=== PATIENT | male | born 1970 | race African-American/Black ===

== ENCOUNTER 2017-01-17 10:26 | Day surgery (SDC) | payer OTHER ==
[2017-01-16 16:58] VITALS: BMI 22.5
[~2017-01-17] VITALS: Ht 172.7 cm; Wt 64.9 kg
[2017-01-17] VITALS (8 sets, daily range): BP systolic 110–151; BP diastolic 71–86; PULSE 62–86; RESP 12–18; Ht 172.7 cm; Wt 64.9 kg
[~2017-01-17 10:26] MED LIST: ASPI-535; CEFAZOLIN 1 GM INJ ONE
[2017-01-17] MEDS ORDERED: CEFAZOLIN 2 GM/50 ML (PMX) 50 ML IVPB ONE (10:30)
[2017-01-17] MEDS ORDERED: MIRT15TA5 PO (11:35)
[2017-01-17] MEDS ORDERED: GLYCOPYRROLATE 0.4 MG INJ ONE (12:13)
[2017-01-17] MEDS ORDERED: PROPOFOL 20 ML ONE (12:13)
[2017-01-17] MEDS ORDERED: MIDAZOLAM 1 MG/ML 2 ML INJ ONE (12:13)
[2017-01-17] MEDS ORDERED: LIDOCAINE 2% (SDV) 5 ML INJ ONE (12:13)
[2017-01-17] MEDS ORDERED: ROCURONIUM 50 MG INJ ONE (12:13)
[2017-01-17] MEDS ORDERED: NEOSTIGMINE 3 MG/3 ML SYRINGE ONE (12:13)
[2017-01-17] MEDS ORDERED: ONDANSETRON 4 MG INJ ONE (12:14)
[2017-01-17] MEDS ORDERED: DEXAMETHASONE 4 MG/ML 1 ML INJ ONE (12:14)
[2017-01-17] MEDS ORDERED: FENTAnyl 50 MCG/ML VIAL ONE (12:14)
--- NOTE | 2017-01-17 12:26 | HPN ---
Date/Time of Note Date/Time of Note DATE: 01/17/17 TIME: 12:26 Interval H&P Admission Note Pt. seen H&P reviewed: No system changes BETZAIDA BERRY MD Jan 17, 2017 12:26
[2017-01-17] MEDS ORDERED: BUPIVACAINE 0.5% (SDV) 30 ML INJ ONE (12:59)
[2017-01-17] MEDS ORDERED: SUCCINYLCHOLINE CHLORIDE 100 MG/5 ML SYG IV ONE (13:12)
[2017-01-17] MEDS ORDERED: NEOMYC/POLYMYX/BACIT 30 GM OINT ONE (13:21)
--- NOTE | 2017-01-17 13:48 | OPR ---
Date/Time of Note Date/Time of Note DATE: 01/17/17 TIME: 13:40 Operative Report Procedure Date: Jan 17, 2017 Preoperative Diagnosis Right hydrocele Postoperative Diagnosis Right hydrocele Operation Performed Right hydrocelectomy Surgeon: BETZAIDA BERRY MD Anesthesia: general Anesthesiologist: RODNEY ALEGRE MD Estimated Blood Loss: minimal Specimens Hydrocele sac Complications: None Pt Condition Post Procedure: stable Indications Right hydrocele Operative\Procedure Findings Right hydrocele Procedure Description Patient was brought to the operating room. General anesthesia was induced. Time out was done, the patient was identified by his name date , the procedure and the side of the procedure. The genital area was prepped and draped in the usual sterile manner. A vertical incision was made over the right scrotal wall. Incision was deepened through the different layers of the scrotum then the tunica vaginalis was opened and yellowish hydrocele fluid was suctioned. The testicle was delivered out of the sac then the sac was excised on both sides. All the bleeders were electrocoagulated, good hemostasis was obtained, then the edges of the hydrocele were sutured with 3-0 Vicryl running interlocked sutures. The subcutaneous tissue was then approximated with 3-0 Vicryl running interlocked sutures and the skin was closed with 3-0 Vicryl running mattress sutures. Patient was given half percent Marcaine injection over the incision for local anesthesia. The incision was covered was triple antibiotic ointment and piece of Telfa and a fluff dressing and that was held in place was a suspensory scrotal support and the patient was transferred to recovery room in stable and satisfactory condition BETZAIDA BERRY MD Jan 17, 2017 13:48
[2017-01-17] MEDS ORDERED: HYDROmorphONE (0.2 MG/ML) 10ML SYG IV PRN ×3 (14:00)
[2017-01-17] MEDS ORDERED: LABETALOL HCL 20MG INJ IV PRN (14:00)
[2017-01-17] MEDS ORDERED: ONDANSETRON 4 MG INJ IV PRN (14:00)
[2017-01-17] MEDS ORDERED: DIPHENHYDRAMINE 50 MG INJ IV PRN (14:00)
[2017-01-17] MEDS ORDERED: hydrALAzine 20 MG INJ IV PRN (14:00)
[2017-01-17] MEDS ORDERED: ATROPINE 1 MG/10 ML SYRINGE IV PRN (14:00)
[2017-01-17] MEDS ORDERED: FENTAnyl 50 MCG/ML VIAL IV PRN ×2 (14:00)
[2017-01-17] MEDS ORDERED: MEPERIDINE 25 MG INJ IV PRN (14:00)
[2017-01-17] MEDS ORDERED: MIDAZOLAM 1 MG/ML 2 ML INJ IV PRN (14:00)
[2017-01-17] MEDS ORDERED: morphine (1 MG/ML) 10ML SYRINGE IV PRN ×3 (14:00)
[2017-01-17] MEDS ORDERED: HYDROCODONE/APAP (5/325) TAB PO PRN (14:00)
[2017-01-17] MEDS ORDERED: OXYCODONE/ACETAMINOPHEN (5/325) TAB PO PRN ×2 (14:00)
[2017-01-17] MEDS ORDERED: EPHEDrine SULFATE 50 MG/5 ML SYG IV PRN (14:00)
== END 2017-01-17 15:00 | disposition home or self-care (01) ==
LOC: SDS 10:26
PROVIDERS: ATTEND Urology
DX: N43.3 Hydrocele, unspecified (principal)
CPT/HCPCS: 55500; 88302; J0690; J1100; J2250; J2405; J2710; J3010; J7999; Z7512; Z7610

== ENCOUNTER 2017-02-17 11:22 | Emergency (ER) | payer OTHER ==
[~2017-02-17] VITALS: Ht 172.7 cm; Wt 65.0 kg
[~2017-02-17 11:22] MED LIST changes: -ASPI-535; -CEFAZOLIN 1 GM INJ ONE; +MIRT15TA5 PO
[2017-02-17 11:24] VITALS: Ht 172.7 cm; Wt 65.0 kg
[2017-02-17] MEDS ORDERED: ZOLP5TAB PO (11:57)
[2017-02-17 12:10] VITALS: BP 152/85; PULSE 76
--- NOTE | 2017-02-17 12:28 | ERD ---
ER Documentation Chief Complaint Date/Time DATE: 02/17/17 TIME: 12:26 Chief Complaint Pt having trouble sleeping X 1.5 weeks, taking benadryl with no improvement HPI 46-year-old male history of bipolar disorder presents emergency department with insomnia for the past 1-1/2 weeks. He states that he was seen at an outside facility for this and was prescribed Benadryl 50 mg which she has been taking but without any improvement. He is supposed to see a sleep specialist on the which is 2 days from now. He denies suicidal ideations. ROS All systems reviewed and are negative except as per history of present illness. Medications Home Meds Active Scripts Zolpidem Tartrate* (Ambien*) 5 Mg Tablet, 5 MG PO HS Y for INSOMNIA, #3 TAB Prov:ANGIE DENNISON PA-C 02/17/17 Reported Medications Mirtazapine* (Mirtazapine*) 15 Mg Tablet, 15 MG PO HS, TAB 01/17/17 Allergies Allergies: Coded Allergies: No Known Allergies (Verified Allergy, Mild, 02/17/17) PMhx/Soc Medical and Surgical Hx: pt denies Medical Hx, pt denies Surgical Hx History of Surgery: No Anesthesia Reaction: No Hx Neurological Disorder: Yes (DEPRESSION, INSOMNIA) Hx Respiratory Disorders: No Hx Cardiac Disorders: No Hx Psychiatric Problems: No Hx Miscellaneous Medical Probl: No Hx Alcohol Use: No Hx Substance Use: No Hx Tobacco Use: Yes Smoking Status: Current every day smoker Physical Exam Vitals Vital Signs Date Time Temp Pulse Resp B/P Pulse Ox O2 Delivery O2 Flow Rate FiO2 02/17/17 12:10 76 152/85 02/17/17 11:24 97.9 68 18 173/83 100 Physical Exam General: Well-developed, well-nourished. The patient appears in no acute distress. HEENT: Head is normocephalic, atraumatic. No scleral icterus. Neck: Supple. Nontender. Lungs: Clear to auscultation. Normal air movement. Heart: Regular rate and rhythm. S1 and S2 are normal. No murmurs, gallops, or rubs. Abdomen: Nondistended. Extremities: No clubbing or cyanosis. Moving extremities x 4. No weakness. Neurologic: Alert and oriented 3. No focal deficits. Normal speech and gait. Skin: Normal turgor. No rash or lesions. Procedures/MDM 46-year-old male presents with symptoms of insomnia for the past week and a half , he will be given a short course of Ambien until he sees his sleep specialist. He does have a history of bipolar disorder and he is taking Abilify regularly. He does not present with any signs or symptoms of acute psychosis, or suicidal ideations or danger to others, he does not warrant any emergent psychiatric evaluation is stable for outpatient management. The case was reviewed and discussed with Dr. Salazar who agrees with the plan of care including labs, treatment, and advanced imaging as appropriate. Patient's blood pressure was elevated (>120/80) but appears stable without evidence of hypertension emergency or urgency. The patient was counseled about the risks of hypertension and urged to pursue outpatient monitoring and therapy within a week with their primary care physician. Departure Diagnosis: Primary Impression: Insomnia Additional Impression: Bipolar disorder Condition: Good Patient Instructions: Insomnia ANGIE DENNISON PA-C Feb 17, 2017 12:28
== END 2017-02-17 12:09 | disposition home or self-care (01) ==
LOC: FTE 11:22
DX: G47.00 Insomnia, unspecified (principal); F31.9 Bipolar disorder, unspecified; F17.210 Nicotine dependence, cigarettes, uncomplicated
CPT/HCPCS: 99284

== ENCOUNTER 2018-08-27 08:38 | Emergency (ER) | payer OTHER ==
[~2018-08-27] VITALS: Ht 172.7 cm; Wt 65.3 kg
[~2018-08-27 08:38] MED LIST changes: +ZOLP5TAB PO
[2018-08-27 08:55] VITALS: BP 145/80; PULSE 84; RESP 18; Ht 172.7 cm; Wt 65.3 kg
[2018-08-27] MEDS ORDERED: HC30CR25 TOP (09:49)
--- NOTE | 2018-08-27 13:17 | ERD ---
ER Documentation Chief Complaint Chief Complaint SKIN RASH BEHIND EARS, NEED MEDICATION. HPI 48-year-old male presents to the ED complaining of itchiness and dryness behind his ears and scalp for the past week. Patient states that he is tried benzyl peroxide without any relief. He denies shortness of breath, nausea vomiting ROS All systems reviewed and are negative except as per history of present illness. Medications Home Meds Active Scripts Hydrocortisone* Topical (Hydrocortisone* Topical) 2.5%-28.3 Gm Cream..g., 1 APPLIC TOP BID for 7 Days, #1 TUB Prov:SHILPI CARVALHO PA-C 08/27/18 Zolpidem Tartrate* (Ambien*) 5 Mg Tablet, 5 MG PO HS PRN for INSOMNIA, #3 TAB Prov:ANGIE DENNISON PA-C 02/17/17 Reported Medications Mirtazapine* (Mirtazapine*) 15 Mg Tablet, 15 MG PO HS, TAB 01/17/17 Allergies Allergies: Coded Allergies: No Known Allergies (Verified Allergy, Mild, 08/27/18) PMhx/Soc History of Surgery: No Anesthesia Reaction: No Hx Neurological Disorder: Yes (DEPRESSION, INSOMNIA) Hx Respiratory Disorders: No Hx Cardiac Disorders: No Hx Psychiatric Problems: No Hx Miscellaneous Medical Probl: No Hx Alcohol Use: No Hx Substance Use: No Hx Tobacco Use: Yes Smoking Status: Current every day smoker Physical Exam Vitals Vital Signs Date Temp Pulse Resp B/P (MAP) Pulse Ox O2 O2 Flow FiO2 Time Delivery Rate 08/27/18 98.7 84 18 145/80 100 08:55 (101) Physical Exam Const: No acute distress Head: Atraumatic Eyes: Normal Conjunctiva ENT: Normal External Ears, Nose and Mouth. Neck: Full range of motion. No meningismus. Resp: Clear to auscultation bilaterally Cardio: Regular rate and rhythm, no murmurs Abd: Soft, non tender, non distended. Normal bowel sounds Skin: Mild erythematous and flakiness behind the ears Back: No midline or flank tenderness Ext: No cyanosis, or edema Neur: Awake and alert Psych: Normal Mood and Affect Procedures/MDM Is a 48-year-old male presents to the ED with a pruritic rash behind the ears. No evidence of anaphylaxis. Patient stable to be discharged home with prescription for hydrocortisone. I have discussed the adverse effects. Patient is well aware, and he instructed him to follow-up with his primary he understands agrees this plan Departure Diagnosis: Primary Impression: Rash Condition: Stable Patient Instructions: What Is Atopic Dermatitis?, Self-Care for Skin Rashes, Contact Dermatitis Referrals: NO PRIMARY,CARE PHYSICIAN (PCP) Additional Instructions: FOLLOW UP WITH YOUR PRIMARY CARE PHYSICIAN TOMORROW.Return to this facility if you are not improving as expected. Take all medicines as directed. Return to this facility if you are not improving as expected. SHILPI CARVALHO PA-C Aug 27, 2018 13:17
== END 2018-08-27 10:37 | disposition home or self-care (01) ==
LOC: FTE 08:38
DX: L29.9 Pruritus, unspecified (principal); F17.210 Nicotine dependence, cigarettes, uncomplicated
CPT/HCPCS: 99282

== ENCOUNTER → 2019-02-13 | Emergency (ER) | payer MEDICARE, OTHER ==
[~2019-02-13] VITALS: Wt 76.0 kg
[~2019-02-13] MED LIST changes: +HC30CR25 TOP
[2019-02-13 09:40] VITALS: BP 143/68; PULSE 68; RESP 18
--- NOTE | 2019-02-13 10:23 | ERD ---
ER Documentation Chief Complaint Chief Complaint RASH/ITCHING, WANTS REFILL OF MEDS STEROIDS? HPI 48-year-old male presenting for steroid refill. Patient has a history of eczema and states that he ran out of his hydrocortisone. He has not used it for a while he is noticed his symptoms are returning. He denies any fevers. States is the same as his normal eczema symptoms. Medical history is eczema. NKDA. Social history smokes cigarettes and marijuana. Surgical history denies ROS All systems reviewed and are negative except as per history of present illness. Medications Home Meds Active Scripts Hydrocortisone* Topical (Hydrocortisone* Topical) 2.5%-28.3 Gm Cream..g., 1 APPLIC TOP BID, #1 TUB Prov:LUCIE RICKETTS PA-C 02/13/19 Hydrocortisone* Topical (Hydrocortisone* Topical) 2.5%-28.3 Gm Cream..g., 1 APPLIC TOP BID for 7 Days, #1 TUB Prov:SHILPI CARVALHO PA-C 08/27/18 Zolpidem Tartrate* (Ambien*) 5 Mg Tablet, 5 MG PO HS PRN for INSOMNIA, #3 TAB Prov:ANGIE DENNISON PA-C 02/17/17 Reported Medications Mirtazapine* (Mirtazapine*) 15 Mg Tablet, 15 MG PO HS, TAB 01/17/17 Allergies Allergies: Coded Allergies: No Known Allergies (Verified Allergy, Mild, 08/27/18) PMhx/Soc History of Surgery: No Anesthesia Reaction: No Hx Neurological Disorder: Yes (DEPRESSION, INSOMNIA) Hx Respiratory Disorders: No Hx Cardiac Disorders: No Hx Psychiatric Problems: No Hx Miscellaneous Medical Probl: No Hx Alcohol Use: No Hx Substance Use: No Hx Tobacco Use: Yes Smoking Status: Current every day smoker FmHx Family History: No diabetes, No coronary disease, No other Physical Exam Vitals Vital Signs Date Temp Pulse Resp B/P (MAP) Pulse Ox O2 O2 Flow FiO2 Time Delivery Rate 02/13/19 98.1 68 18 143/68 99 09:40 (93) Physical Exam GENERAL: The patient is well-appearing, well-nourished, in no acute distress CHEST: Clear to auscultation bilaterally. There are no rales, wheezes or rhonchi. HEART: Regular rate and rhythm. No murmurs, clicks, rubs or gallops. SKIN: Dry red scaly patches noted with no vesicles or pustules. Procedures/MDM MDM: 48-year-old male presenting for medication refill of steroids. Patient has a history of eczema. I have low suspicion for bacterial or parasitic rash. I w ill suspicion for viral infection. Patient is discharged with supportive medications recommend follow-up with primary care. Patient is told if symptoms change or worsen to return to the ER. All questions answered at discharge Departure Diagnosis: Primary Impression: Rash Condition: Stable Patient Instructions: Self-Care for Skin Rashes Referrals: [facility] YOU HAVE RECEIVED A MEDICAL SCREENING EXAM AND THE RESULTS INDICATE THAT YOU DO NOT HAVE A CONDITION THAT REQUIRES URGENT TREATMENT IN THE EMERGENCY DEPARTMENT. FURTHER EVALUATION AND TREATMENT OF YOUR CONDITION CAN WAIT UNTIL YOU ARE SEEN IN YOUR DOCTORS OFFICE WITHIN THE NEXT 1-2 DAYS. IT IS YOUR RESPONSIBILITY TO MAKE AN APPOINTMENT FOR FOLOW-UP CARE. IF YOU HAVE A PRIMARY DOCTOR --you should call your primary doctor and schedule an appointment IF YOU DO NOT HAVE A PRIMARY DOCTOR YOU CAN CALL OUR PHYSICIAN REFERRAL HOTLINE AT IF YOU CAN NOT AFFORD TO SEE A PHYSICIAN YOU CAN CHOSE FROM THE FOLLOWING [facility] [address] [facility] [facility] [address] [facility] [facility] [address] [facility] [facility] [address] [facility]. [facility] [address] [facility]. [facility]. [address] Additional Instructions: FOLLOW UP WITH YOUR PRIMARY CARE PHYSICIAN TOMORROW.Return to this facility if you are not improving as expected. LUCIE RICKETTS PA-C Feb 13, 2019 10:23
== END | disposition home or self-care (01) ==
LOC: FTE 09:39
DX: F17.210 Nicotine dependence, cigarettes, uncomplicated (principal)
CPT/HCPCS: 99281